=== PATIENT | female | born 1955 | race Native Hawaiian/Other Pacific Islander ===

== ENCOUNTER 2020-08-17 07:48 | Emergency (ER) | payer BC, OTHER ==
[2020-08-17 08:22] LABS: Bilirubin,Urine NEG (Negative); Blood,Urine NEG (Negative); Color,Urine Yellow (Yellow); Mucus,Urine FEW /HPF; Urobilinogen,Urine < 2.0 mg/dL (<2.0)
[2020-08-17 08:23] LABS: RBC,Urine < 1.0 /HPF (0.0-6.0)
--- NOTE | 2020-08-17 09:16 | XRay Report ---
CHEST 2 VIEWS INDICATION: weakness. COMPARISON: None. FINDINGS: Support devices: None. Heart: Within normal limits. Lungs/Pleura: Patchy infiltrates at the mid/lower zones. No significant pleural effusion. IMPRESSION: Bilateral pneumonia. Signer Name: Florentin Rodarte MD Signed: 08/17/2020 9:11 AM Workstation Name: [id number]
[2020-08-17 10:33] LABS: Basophils % (Auto) 0.2 % (0.0-1.8); Eosinophils % (Auto) 0.1 % (0.0-4.3); Hematocrit 41.5 % (30.3-42.9); Lymphocytes # (Auto) 1.1 K/mm3 (1.2-5.4); Mean Corpuscular HGB Conc 34 % (30-34); Mean Corpuscular Volume 84 fl (79-97); Monocytes # (Auto) 0.8 K/mm3 (0.0-0.8); Monocytes % (Auto) 8.9 % (0.0-7.3); Platelet Count 251 K/mm3 (140-440); Red Blood Count 4.93 M/mm3 (3.65-5.03); Red Cell Distribution Width 13.1 % (13.2-15.2)
[2020-08-17 10:40] LABS: Alanine Aminotransferase 57 units/L (7-56); BUN/Creatinine Ratio 16; Blood Urea Nitrogen 13 mg/dL (7-17); Calcium 9.4 mg/dL (8.4-10.2); Hemolysis Index 2
--- NOTE | 2020-08-17 11:20 | Emergency Department Report ---
ED N/V/D HPI - General Chief complaint: Nausea/Vomiting/Diarrhea Stated complaint: NAUSEA/WEAK/CANT EAT PUI?: Yes Time Seen by Provider: 08/17/20 11:11 Source: patient Mode of arrival: Ambulatory Limitations: Language Barrier - History of Present Illness Initial comments: Patient is a 65-year-old female that presents emergency room with complaints of nausea, vomiting, diarrhea. Patient states that her nausea, vomiting started 7 or 8 days ago. Patient states she has not held any food down for 7 days. Patient states her diarrhea started 2 days ago. Patient also complains of shortness of breath and fatigue. Patient states her shortness of breath and fatigue started 24 hours ago. Patient states she has not been tested for COVID- 19. Patient states she does not have a cough or fever. Patient denies chest pain. Patient denies chills. Patient denies body aches. Patient states every time she tries to eat she throws up. Patient states she was able to tolerate sips yesterday. Patient states her shortness of breath is unchanged with Exertion. Patient states that her fatigue is worse with exertion. Patient chepe es abdominal pain. Patient denies blood in her vomitus. Patient denies blood in her stool. Patient denies recent travel. Patient denies recent international travel. Patient denies exposure to the novel coronavirus. Patient denies sick contacts. Patient denies fever and chills. Patient denies cough. Patient denies coming in contact with anybody with symptoms of the novel coronavirus. MD complaint: nausea, vomiting, diarrhea -: Sudden Description of Vomiting: watery Description of Diarrhea: water Associated Abdominal Pain: No Severity: severe Pain Scale: 0 Consistency: constant Improves with: rest Worsens with: eating Associated Symptoms: myalgias, loss of appetite, malaise, nausea/vomiting, shortness of breath, weakness. denies: chest pain, cough, diaphoresis, fever/chills, headaches, rash, dysuria - Related Data Home Medications Medication Instructions Recorded Confirmed Last Taken Anastrozole (Nf) [Arimidex (Nf)] 1 mg PO DAILY 04/15/15 04/15/15 04/13/15 Cetirizine HCl [ZyrTEC] 1 tab PO DAILY PRN 04/15/15 04/15/15 Unknown Gabapentin [Neurontin] 100 mg PO Q8HR 04/15/15 04/15/15 04/13/15 Losartan [Cozaar] 100 mg PO QDAY 04/15/15 04/15/15 04/13/15 RX: AtorvaSTATin [Lipitor] 40 mg PO QHS 04/15/15 04/15/15 04/13/15 amLODIPine [Norvasc] 5 mg PO DAILY 04/15/15 04/15/15 04/13/15 Previous Rx's Medication Instructions Recorded Last Taken Type HYDROcodone/APAP 5-325 [Porcupine 1 each PO Q6HR PRN #20 tablet 04/15/15 Unknown Rx 5/325] Sulfamethoxazole/Trimethoprim 1 each PO BID #20 tablet 04/15/15 Unknown Rx [Bactrim DS TAB] Azithromycin [Zithromax TAB] 500 mg PO QDAY 5 Days #5 tablet 08/17/20 Unknown Rx Ondansetron [Zofran Odt] 4 mg PO Q6HR PRN #20 tab.rapdis 08/17/20 Unknown Rx methylPREDNISolone [Medrol 4MG 4 mg PO DAILY 6 Days #1 tab.ds.pk 08/17/20 Unknown Rx DOSEPAK (21 tabs)] Allergies Allergy/AdvReac Type Severity Reaction Status Date / Time No Known Allergies Allergy Verified 08/17/20 07:52 ED Review of Systems ROS: Stated complaint: NAUSEA/WEAK/CANT EAT Other details as noted in HPI Constitutional: malaise, weakness. denies: chills, fever Eyes: denies: eye pain, eye discharge, vision change ENT: denies: ear pain, throat pain Respiratory: denies: cough, shortness of breath, wheezing Cardiovascular: denies: chest pain, palpitations Endocrine: no symptoms reported Gastrointestinal: as per HPI, nausea, vomiting, diarrhea. denies: abdominal pain Genitourinary: denies: urgency, dysuria, discharge Musculoskeletal: denies: back pain, joint swelling, arthralgia Skin: denies: rash, lesions Neurological: weakness. denies: headache, paresthesias Psychiatric: denies: anxiety, depression Hematological/Lymphatic: denies: easy bleeding, easy bruising ED Past Medical Hx - Past Medical History Previous Medical History?: Yes Hx Hypertension: Yes Additional medical history: High cholesterol - Surgical History Past Surgical History?: Yes Hx Breast Surgery: Yes (Left breast mastectomy) Additional Surgical History: kidney surgery - Family History Family history: no significant - Social History Smoking Status: Never Smoker Substance Use Type: None - Medications Home Medications: Home Medications Medication Instructions Recorded Confirmed Last Taken Type Anastrozole (Nf) [Arimidex (Nf)] 1 mg PO DAILY 04/15/15 04/15/15 04/13/15 History Cetirizine HCl [ZyrTEC] 1 tab PO DAILY PRN 04/15/15 04/15/15 Unknown History Gabapentin [Neurontin] 100 mg PO Q8HR 04/15/15 04/15/15 04/13/15 History HYDROcodone/APAP 5-325 [Porcupine 1 each PO Q6HR PRN #20 tablet 04/15/15 Unknown Rx 5/325] Losartan [Cozaar] 100 mg PO QDAY 04/15/15 04/15/15 04/13/15 History RX: AtorvaSTATin [Lipitor] 40 mg PO QHS 04/15/15 04/15/15 04/13/15 History Sulfamethoxazole/Trimethoprim 1 each PO BID #20 tablet 04/15/15 Unknown Rx [Bactrim DS TAB] amLODIPine [Norvasc] 5 mg PO DAILY 04/15/15 04/15/15 04/13/15 History Azithromycin [Zithromax TAB] 500 mg PO QDAY 5 Days #5 tablet 08/17/20 Unknown Rx Ondansetron [Zofran Odt] 4 mg PO Q6HR PRN #20 tab.rapdis 08/17/20 Unknown Rx methylPREDNISolone [Medrol 4MG 4 mg PO DAILY 6 Days #1 tab.ds.pk 08/17/20 Unknown Rx DOSEPAK (21 tabs)] ED Physical Exam - General Limitations: Language Barrier General appearance: alert, in no apparent distress - Head Head exam: Present: atraumatic, normocephalic - Eye Eye exam: Present: normal appearance - ENT ENT exam: Present: mucous membranes dry - Neck Neck exam: Present: normal inspection - Respiratory Respiratory exam: Present: normal lung sounds bilaterally. Absent: respiratory distress - Cardiovascular Cardiovascular Exam: Present: regular rate, normal rhythm. Absent: systolic murmur, diastolic murmur, rubs, gallop - GI/Abdominal GI/Abdominal exam: Present: soft, normal bowel sounds. Absent: distended, tenderness, guarding - Extremities Exam Extremities exam: Present: normal inspection - Back Exam Back exam: Present: normal inspection - Neurological Exam Neurological exam: Present: alert, oriented X3 - Psychiatric Psychiatric exam: Present: normal affect, normal mood - Skin Skin exam: Present: warm, dry, intact, normal color. Absent: rash ED Course Vital Signs 08/17/20 07:53 Temperature 98.1 F Pulse Rate 79 Respiratory 18 Rate Blood Pressure 151/57 O2 Sat by Pulse 96 Oximetry - Reevaluation(s) Reevaluation #1: pt states she feels better. pt tolerated po chalenge and po intake. pt denies n/v. 08/17/20 12:31 Reevaluation #2: pt ambulatory with symptoms. pt denies sob. pt ambulated with mobile pulse ox and pt did not de-satuate. pt's oxygen sat remained stable throught ambulation and stay in er. pt states she is feeling much better. 08/17/20 13:15 Reevaluation #3: I discussed all results and clinical findings with patient. I discussed plan of care with patient. Patient agrees with plan of care. Patient is stable for discharge. Patient will be discharged home. Patient given discharge instructions. Patient voiced understanding of discharge instructions. 08/17/20 13:33 ED Medical Decision Making - Lab Data Result diagrams: 08/17/20 10:02 08/17/20 10:02 - EKG Data -: EKG Interpreted by Me EKG shows normal: sinus rhythm, axis, intervals, QRS complexes, ST-T waves Rate: normal - EKG Data Interpretation: no acute changes, normal EKG - Radiology Data Radiology results: report reviewed, image reviewed interpreted by me: Chest x-ray: Bilateral pneumonia, no pneumothorax, no foreign body, no osseous findings,. CHEST 2 VIEWS INDICATION: weakness. COMPARISON: None. FINDINGS: Support devices: None. Heart: Within normal limits. Lungs/Pleura: Patchy infiltrates at the mid/lower zones. No significant pleural effusion. IMPRESSION: Bilateral pneumonia. - Medical Decision Making Patient is a 65-year-old female that presents emergency room with multiple complaints. Patient complaints include shortness of breath, fatigue, nausea, vomiting, diarrhea. Patient had labs done which were essentially unremarkable except for mild hyponatremia. Patient had a chest x-ray which shows bilateral pneumonia. Patient clinical findings are concerning for gastroenteritis and COVID-19 infection. Patient given fluids, antibiotics, Zofran and Decadron. Patient responded well to treatment. Patient ambulatory in the ER. Patient tolerated p.o. challenge. Patient tolerated p.o. water and p.o. food. Patient ambulated in the ER with a pulse ox machine. Patient did not have any desaturations. Patient's oxygen remained stable in the ER. Patient was never hypoxic. Patient is stable for discharge. Patient responded well to treatment. Patient discharged home with discharge instructions and prescriptions. - Differential Diagnosis covid, n/v/d, sob. faigue, gastroenteritis, Critical care attestation.: If time is entered above; I have spent that time in minutes in the direct care of this critically ill patient, excluding procedure time. ED Disposition Clinical Impression: Gastroenteritis, Person under investigation for COVID-19, SOB (shortness of breath), Dehydration Nausea & vomiting Qualifiers: Vomiting type: unspecified Vomiting Intractability: non-intractable Qualified Code(s): R11.2 - Nausea with vomiting, unspecified Diarrhea Qualifiers: Diarrhea type: unspecified type Qualified Code(s): R19.7 - Diarrhea, unspecified Pneumonia Qualifiers: Pneumonia type: due to unspecified organism Laterality: bilateral Lung location: unspecified part of lung Qualified Code(s): J18.9 - Pneumonia, unspecified organism Disposition: DC-01 TO HOME OR SELFCARE Is pt being admited?: No Does the pt Need Aspirin: No Condition: Stable Instructions: COVID-19, Viral Gastroenteritis, Adult, [id number], Dehydration, Adult, [id number], Nausea and Vomiting, Adult, COVID-19: How to Protect Yourself and Others - CDC, Diarrhea, Adult, [id number], Community- Acquired Pneumonia, Adult, [id number], Prevent the Spread of COVID-19 if You Are Sick - CDC, Bacterial Pneumonia (ED) Additional Instructions: Patient to follow-up with primary care in 2 to 3 days. Patient to follow-up with health department in 2 to 3 days. Patient to have Covid testing done as soon as possible. Patient to self quarantine. Patient to rest. Patient to increase water and eat a BRAT diet. Patient to take Tylenol as needed for pain. Patient to take meds as directed. Patient to return to the ER if condit ion worsens, changes or new symptoms arise. Prescriptions: methylPREDNISolone [Medrol 4MG DOSEPAK (21 tabs)] 4 mg PO DAILY 6 Days #1 tab.ds.pk Azithromycin [Zithromax TAB] 500 mg PO QDAY 5 Days #5 tablet Ondansetron [Zofran Odt] 4 mg PO Q6HR PRN #20 tab.rapdis PRN Reason: Nausea And Vomiting Referrals: PRIMARY CARE, [Primary Care Provider] - 2-3 Days Time of Disposition: 13:33 Print Language: TAJIK
[2020-08-17] MEDS ORDERED: SODIUM CHLORIDE 0.9% 1000 ML IV SOLN IV ONE (11:31)
[2020-08-17] MEDS ORDERED: ONDANSETRON 4 MG/2 ML INJ IV ONE (11:31)
[2020-08-17] MEDS ORDERED: SODIUM CHLORIDE 0.9% 500 ML 500 ML ONE (11:40)
[2020-08-17] MEDS ORDERED: dexAMETHasone 4 MG/ML VIAL IV ONE (11:47)
[2020-08-17] MEDS ORDERED: cefTRIAXone/NS 2 GM/100 ML 2 GM/100 ML BAG IV ONE (11:47)
[2020-08-17] MEDS ORDERED: AZITHROMYCIN 500 MG in SODIUM CHLORIDE 0.9% 250ML 250 ML IV ONE (12:47)
[2020-08-17 15:31] VITALS: BP 148/63
== END 2020-08-17 15:32 | disposition home or self-care (01) ==
LOC: ED 07:48
DX: K52.9 Noninfective gastroenteritis and colitis, unspecified (principal); E86.0 Dehydration; J18.9 Pneumonia, unspecified organism; Z01.84 Encounter for antibody response examination; I10 Essential (primary) hypertension; Z98.890 Other specified postprocedural states; Z79.899 Other long term (current) drug therapy
CPT/HCPCS: 36415; 71046; 80053; 81001; 83690; 85025; 93005; 96365; 96367; 96375; 99284; J0456; J0696; J1100; J2405; J7030; J7040; J7050